=== PATIENT | female | born 1985 ===

== ENCOUNTER 2017-03-13 19:16 | Inpatient (IN) | payer MEDICAID ==
[2017-03-13 20:38] VITALS: BMI 27.8
[2017-03-13] MEDS ORDERED: Penicillin G 5 Million Unit Vial IVPB ONE ×2 (20:38→21:02)
[2017-03-13] MEDS ORDERED: Lactated Ringer's 1,000 ML IV SCH (20:45)
[2017-03-13 21:41] LABS: BASO # 0.1 K/uL (0.0-0.2); BASO % 0.8 % (0.0-2.0); EOS # 0.1 K/uL (0.0-0.7); HEMOGLOBIN 12.4 g/dL (11.0-16.0); LYMPH # 2.2 K/uL (1.0-4.3); LYMPH % 20.7 % (20.0-40.0); MEAN CELL VOLUME 85.5 fL (81.0-99.0); MEAN CORPUSCULAR HEMOGLOBIN 29.6 pg (27.0-31.0); MEAN CORPUSCULAR HGB CONC 34.6 g/dL (33.0-37.0); MEAN PLATELET VOLUME 11.2 fL (7.2-11.7); MONO # 0.9 K/uL (0.0-0.8); MONO % 8.3 % (0.0-10.0); NEUT # 7.5 K/uL (1.8-7.0); NEUT % 69.2 % (50.0-75.0); NRBC % 0.1 % (0.0-2.0); RBC 4.19 Mil/uL (3.80-5.20); RED CELL DISTRIBUTION WIDTH 13.5 % (11.5-14.5); WHITE BLOOD COUNT 10.8 K/uL (4.8-10.8)
[2017-03-13 21:48] LABS: SQUAMOUS EPITHIAL 11 /hpf (0-5); URINE BACTERIA MANY (<OCC)
[2017-03-13 21:49] LABS: PH,URINE 6.5 (5.0-8.0); URINE BILIRUBIN NEGATIVE (NEGATIVE); URINE BLOOD MODERATE (NEGATIVE); URINE CLARITY SL HAZY (Clear); URINE COLOR YELLOW (YELLOW); URINE GLUCOSE (UA) 250 mg/dL (Normal); URINE LEUKOCYTE ESTERASE NEGATIVE Leu/uL (Negative); URINE NITRATE NEGATIVE (NEGATIVE); URINE PROTEIN 30 mg/dL (NEGATIVE); URINE UROBILINOGEN 0.2 mg/dL (0.2-1.0)
[2017-03-13 22:15] LABS: ALBUMIN 3.5 g/dL (3.5-5.0); ALT/SGPT 34 U/L (9-52); AST/SGOT 27 U/L (14-36); BLOOD UREA NITROGEN 16 mg/dL (7-17); CALCIUM 8.7 mg/dl (8.6-10.4); GFR AFRICAN-AMERICAN > 60; GFR NON-AFRICAN AMERICAN > 60
[2017-03-14] MEDS ORDERED: Bupivacaine HCl 0.25% PF (10 ml) Inj ONE (00:23)
[2017-03-14] MEDS ORDERED: Fentanyl/Bupivacaine HCl 250 ML EPI ONE (00:23)
--- NOTE | 2017-03-14 01:22 | OBHP ---
Datetime: 03/14/2017 00:05 Presentation-Admit: Vertex FHR - Baseline A Provider: 150 Membranes, Provider: Intact Contraction Comments Provider: 1-2 Gestation - Est Wks by US: 39w 3d Vital Signs Provider: Reviewed; Within Normal Limits NICHD Variability Prov Fetus A: Moderate 6-25bpm NICHD Accel Fetus A IP Provider: 15X15 FHR Category Provider Fetus A: Category I NICHD Decel Fetus A IP Provider: None Dilatation, Provider: 7 Effacement, Provider: 80 Station, Provider: -3 Datetime: 03/13/2017 20:26 IP Adm Impression: Term, intrauterine IP Admit Plan: Admit to unit Admit Comment, IP Provider: Patient is a 31 year old at 39w3d with WAYNE 03/17/17 by LMP present s to L+D for contractions that started last night. States that the pain started getting worse this af ternoon around 3pm. Feeling contractions q5-15 minutes. Pain scale 7/10. Also reports losing her muco us plug. Endorses +FM, denies VB, LOF Issues: GBS positive OB Hx: 1. 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 06/10/2016 [facility] 14/regular/3-4 days Denies history of fibroids, STIs, abnormal pap smears Hx of ovarian cysts Allergies: NKDA Medical Hx: Denies Medications: PNV Surgical Hx: Denies Social Hx: Denies alcohol, tobacco, drug use; , lives with and daughter Family Hx: Mom- unknown, Father - unknown PE: see above A/P: 31 year old at 39w3d presents with contractions, early labor -Will admit to unit -CEFM and TOCO -Admission labs: CBC, CMP, TS, UA, RPR -Lactated ringers @ 125cc/hr -Diet: NPO -Cytotec 50mcg x 1 for cervical rippening -GBS positive: Penicillin 5MU x 1, Penicillin 2.5MU q4H until delivery -Anethesia on consult -Anticipate Vaginal delivery -Plan discussed with Dr Jas Muñoz DO PGY-1 Attending Note: Patient seen and evaluated by me. I agree with the above. Decision made to withh old cytotec - patient's contractions increased to every 3 min with a pain scale 7/10. Patient request ed to ambulate. Plan: 1) As above, except for cytotec p.o. 2) Patient may ambulate, as tolerated 3) Anticpate vaginal delivery Comments, ACOG Physical Exam: VSS Gen: AAOx3 Abd: Soft, gravid Ext: No clubbing, cyanosis, edema SVE: 50/-3 IP Hx Assessment: The History has been Reviewed and is Current EGA AdmitDate IP: 39.3 IP Chief Complaint: Uterine contractions
[2017-03-14] MEDS ORDERED: Benzocaine/Menthol 20%-0.5% Topical Spray (60 ml) TOP PRN (03:41)
[2017-03-14] MEDS ORDERED: Oxycodone/Acetaminophen 5/325 mg Tab PO PRN (03:41)
[2017-03-15 08:21] LABS: BASO # 0.1 K/uL (0.0-0.2); EOS # 0.2 K/uL (0.0-0.7); EOS % 1.4 % (0.0-4.0); HEMOGLOBIN 11.7 g/dL (11.0-16.0); LYMPH # 2.8 K/uL (1.0-4.3); LYMPH % 23.2 % (20.0-40.0); MEAN CORPUSCULAR HEMOGLOBIN 30.2 pg (27.0-31.0); MEAN CORPUSCULAR HGB CONC 35.1 g/dL (33.0-37.0); MONO # 0.6 K/uL (0.0-0.8); MONO % 5.2 % (0.0-10.0); NEUT # 8.4 K/uL (1.8-7.0); NEUT % 69.2 % (50.0-75.0); RBC 3.87 Mil/uL (3.80-5.20); RED CELL DISTRIBUTION WIDTH 13.3 % (11.5-14.5); WHITE BLOOD COUNT 12.2 K/uL (4.8-10.8)
--- NOTE | 2017-03-15 13:13 | OBPPN ---
Datetime: 03/15/2017 13:11 PP Pain Prov: Within normal limits PP Nausea Prov: Denies PP Flatus Prov: Yes PP Heart Prov: Normal PP Lungs Prov: Normal PP Abdomen/Uterus Prov: Normal PP Lochia Prov: Normal PP CVA Tenderness Prov: Normal PP Extremities Prov: Normal PP C/S Incision Prov: Not Applicable PP Progress Prov: Normal PP Impression Prov: Normal progression PP Plan Prov: Continue present management PP Progress Note Prov: S--patient denies any complaints.toelrating diet.ambulating and voiding witho ut difficulty.breast feeding. O-VSS Afebrile Abdomen gravid and nontender Extremities no calf tenderness A/P Ptaient s/p vaginal delivery ppd 1. -continue to monitor closely Vital Signs Provider PP: Reviewed; Within Normal Limits
[2017-03-16 00:13] VITALS: RESP 20
[2017-03-16 08:06] VITALS: BP 111/64; PULSE 67; TEMP 97.8; O2SAT 100
[2017-03-16] MEDS ORDERED: Influenza Vaccine 60 mcg/0.5 mL SYR (4YR UP) IM ONE (10:00)
--- NOTE | 2017-03-16 14:45 | OBDCSUM ---
Datetime: 03/15/2017 11:43 Discharge Diagnosis, Provider: Term Delivered Discharge Time: 03/16/2017 12:03 Contraception discussed, Prov: Yes Contraception after Delivery: Undecided
== END 2017-03-16 13:00 | disposition home or self-care (01) | DRG 373 ==
LOC: C.EROB 19:16 → UNDOADMIN 20:34 → C.4D 20:34 → C.4M 03-14 05:20
PROVIDERS: ADMIT Obstetrics & Gynecology; ATTEND Obstetrics & Gynecology
PROC: 10E0XZZ Delivery of Products of Conception, External Approach (ICD-10-PCS; principal; 2017-03-14)
DX: O99.824 Streptococcus B carrier state complicating childbirth (principal); Z37.0 Single live birth; Z3A.39 39 weeks gestation of pregnancy

== ENCOUNTER 2017-04-04 18:05 | Inpatient (IN) | payer MEDICAID ==
[2017-04-04 18:05] VITALS: BMI 27.8
--- NOTE | 2017-04-04 20:55 | C.PDOC ---
History Of Present Illness 31yo female, recently given 21 days ago, , presents to ER for evaluation of abdominal pain which was present since but worsening over the past 2 days. Patient states the pain was initially present after eating but now is constant, causing her concern and prompting the visit. She denies any nausea, vomiting or diarrhea. No other complaints. Time Seen by Provider: 04/04/17 20:49 Chief Complaint (Nursing): Abdominal Pain History Per: Patient History/Exam Limitations: no limitations Onset/Duration Of Symptoms: Worse Since (2) Current Symptoms Are (Timing): Worse Location Of Pain/Discomfort: RLQ, LLQ Associated Symptoms: denies: Nausea, Vomiting, Diarrhea Exacerbating Factors: Food Past Medical History Reviewed: Historical Data, Nursing Documentation, Vital Signs Vital Signs: Last Vital Signs Temp 98.0 F 04/05/17 01:09 Pulse 69 04/05/17 01:09 Resp 16 04/05/17 01:09 BP 127/78 04/05/17 01:09 Pulse Ox 100 04/05/17 01:09 - Medical History PMH: No Chronic Diseases Denies: Depression, Diabetes, HTN Surgical History: No Surg Hx - [facility] Procedures DELIVERY OF PRODUCTS OF CONCEPTION, EXTERNAL APPROACH (03/13/17) Family History: States: No Known Family Hx - Social History Hx Alcohol Use: No Hx Substance Use: No - Immunization History Hx Tetanus Toxoid Vaccination: No Hx Influenza Vaccination: No Hx Pneumococcal Vaccination: No Review Of Systems Except As Marked, All Systems Reviewed And Found Negative. Constitutional: Negative for: Fever, Chills Gastrointestinal: Positive for: Abdominal Pain. Negative for: Nausea, Vomiting , Diarrhea Physical Exam - Physical Exam Appears: Non-toxic Skin: Normal Color Head: Atraumatic, Normacephalic Eye(s): bilateral: Normal Inspection Neck: Normal ROM, Supple Lymphatic: Normal Exam Chest: Symmetrical Cardiovascular: Rhythm Regular Respiratory: Normal Breath Sounds Gastrointestinal/Abdominal: Soft, Tenderness (right lower quadrant tenderness), Guarding, Rebound Neurological/Psych: Oriented x3, Normal Speech, Normal Cognition ED Course And Treatment - Laboratory Results Result Diagrams: 04/04/17 21:58 04/04/17 21:58 O2 Sat by Pulse Oximetry: 100 (RA) Pulse Ox Interpretation: Normal - CT Scan/US Abd/pelvis CT Other Rad Studies (CT/US): Read By Radiologist, Radiology Report Reviewed CT/US Interpretation: Addendum created by Swetha Bass MD on 04/05/2017 12:53 AM Eastern Time ([place] & [place]). Findings were discussed with Bhavya SUMMERS. This report contains findings that may be critical. for patient care. Initial Report created on 04/05/2017 12:42 AM Eastern Time ([place] & [place]). EXAM: CT Abdomen and Pelvis With Intravenous Contrast. EXAM DATE/TIME: 04/04/2017 9 :17 PM. CLINICAL HISTORY: 31 years old, female; Pain; Abdominal pain; Flank; Right lower quadrant (rlq); Additional info: Rlq abd. pain, 20 days post . TECHNIQUE: Axial computed tomography images of the abdomen and pelvis with intravenous contrast. All CT. scans at this facility use one or more dose reduction techniques, viz.: automated exposure control;. ma/kV adjustment per patient size (including targeted exams where dose is matched to indication; i.e. head); or iterative reconstruction technique. Coronal and sagittal reformatted images were created and reviewed. CONTRAST: 100 mL of OMNIPAQUE 350 administered intravenously. COMPARISON: No relevant prior studies available. FINDINGS: Tiny left lung calcification. The liver is normal. The spleen is normal. The pancreas is normal. No gallstones. No hydronephrosis or perinephric stranding. The appendix is identified axial images 83 - 92. It is dilated measuring up to 16 mm. There is lack. of intraluminal air and 2 appendicoliths are present in the mid- distal appendix. There is wall. thickening There is stranding in the surrounding fat consistent with inflammation. There is no abscess. There is no free air to suggest perforation. The uterus and ovaries appear normal. IMPRESSION: Positive appendicitis. The degree of dilation is concerning for impending perforation. Surgical consultation is. recommended. Thank you for allowing us to participate in the care of your patient. Dictated and Authenticated by: Swetha Bass MD. 04/05/2017 12:42 AM Eastern Time ([place] & [place]) Progress Note: Labs and CT Abdomen with PO contrast ordered. case was d/w Surgeon who accepted patient to his servive for an admission. Zosyn IV ordered. vice president of marketing was called. Disposition - Disposition Disposition: HOSPITALIZED Disposition Time: 00:59 Condition: FAIR - Clinical Impression Clinical Impression: Acute appendicitis - GEORGIE Ahuja [employer] / Resident Statement MD/DO has reviewed & agrees with the documentation as recorded. - Scribe Statement The provider has reviewed the documentation as recorded by the Scribe (Ashley Jacobs) Provider Attestation: All medical record entries made by the Scribe were at my direction and personally dictated by me. I have reviewed the chart and agree that the record accurately reflects my personal performance of the history, physical exam, medical decision making, and the department course for this patient. I have also personally directed, reviewed, and agree with the discharge instructions and disposition. Decision To Admit - Pt Status Changed To: Hospital Disposition Of: Inpatient - Admit Certification Admit to Inpatient:: After my assessment, the patient will require hospitalization for at least two midnights. This is because of the severity of symptoms shown, intensity of services needed, and/or the medical risk in this patient being treated as an outpatient. - InPatient: Physician Admission Certification:: Patient with acute appendicitis needs surgical treatment - . Bed Request Type: Regular Admitting Physician: Eugenio Menard Patient Diagnosis: Acute appendicitis
[2017-04-04] MEDS ORDERED: Iohexol 240 (50 ml) PO STA (21:12)
[2017-04-04] MEDS ORDERED: Sodium Chloride 0.9% 1,000 ML IV STA (21:12)
[2017-04-04] MEDS ORDERED: Iohexol 240 (50 ml) ONE (21:36)
[2017-04-04 22:01] LABS: BASO # 0.1 K/uL (0.0-0.2); BASO % 0.6 % (0.0-2.0); EOS # 0.2 K/uL (0.0-0.7); EOS % 1.2 % (0.0-4.0); LYMPH # 2.8 K/uL (1.0-4.3); LYMPH % 20.1 % (20.0-40.0); MEAN CELL VOLUME 85.9 fL (81.0-99.0); MEAN CORPUSCULAR HEMOGLOBIN 28.6 pg (27.0-31.0); MEAN CORPUSCULAR HGB CONC 33.3 g/dL (33.0-37.0); MEAN PLATELET VOLUME 9.7 fL (7.2-11.7); MONO # 0.9 K/uL (0.0-0.8); MONO % 6.2 % (0.0-10.0); NEUT # 9.9 K/uL (1.8-7.0); NEUT % 71.9 % (50.0-75.0); RBC 4.81 Mil/uL (3.80-5.20); RED CELL DISTRIBUTION WIDTH 14.2 % (11.5-14.5); WHITE BLOOD COUNT 13.8 K/uL (4.8-10.8)
[2017-04-04 22:02] LABS: HEMOGLOBIN 13.8 g/dL (11.0-16.0)
[2017-04-04 22:15] LABS: SQUAMOUS EPITHIAL 2 /hpf (0-5); URINE AMORPHOUS SEDIMENT FEW /ul (<OCC); URINE BACTERIA FEW (<OCC); URINE BILIRUBIN NEGATIVE (NEGATIVE); URINE BLOOD 3+ (NEGATIVE); URINE CLARITY Hazy (Clear); URINE COLOR Yellow (YELLOW); URINE GLUCOSE (UA) NORMAL (Normal); URINE LEUKOCYTE ESTERASE 1+ Leu/uL (Negative); URINE NITRATE NEGATIVE (NEGATIVE); URINE PROTEIN NEGATIVE (NEGATIVE); URINE UROBILINOGEN NORMAL mg/dL (0.2-1.0)
[2017-04-04 22:16] LABS: ALB/GLOB RATIO 1.1 (1.0-2.1); ALBUMIN 4.2 g/dL (3.5-5.0); ALT/SGPT 42 U/L (9-52); AST/SGOT 48 U/L (14-36); BLOOD UREA NITROGEN 14 mg/dL (7-17); CALCIUM 9.4 mg/dl (8.6-10.4); GFR AFRICAN-AMERICAN > 60; GFR NON-AFRICAN AMERICAN > 60; LIPASE 136 U/L (23-300)
[2017-04-04] MEDS ORDERED: Iohexol 350mg/ml 100 ML ONE (22:19)
--- NOTE | 2017-04-05 00:42 | CT ---
EXAM: CT Abdomen and Pelvis With Intravenous Contrast EXAM DATE/TIME: 04/04/2017 9:17 PM CLINICAL HISTORY: 31 years old, female; Pain; Abdominal pain; Flank; Right lower quadrant (rlq); Additional info: Rlq abd pain, 20 days post TECHNIQUE: Axial computed tomography images of the abdomen and pelvis with intravenous contrast. All CT scans at this facility use one or more dose reduction techniques, viz.: automated exposure control; ma/kV adjustment per patient size (including targeted exams where dose is matched to indication; i.e. head); or iterative reconstruction technique. Coronal and sagittal reformatted images were created and reviewed. CONTRAST: 100 mL of OMNIPAQUE 350 administered intravenously. COMPARISON: No relevant prior studies available. FINDINGS: Tiny left lung calcification. The liver is normal. The spleen is normal. The pancreas is normal. No gallstones. No hydronephrosis or perinephric stranding. The appendix is identified axial images 83 - 92. It is dilated measuring up to 16 mm. There is lack of intraluminal air and 2 appendicoliths are present in the mid- distal appendix. There is wall thickening There is stranding in the surrounding fat consistent with inflammation. There is no abscess. There is no free air to suggest perforation. The uterus and ovaries appear normal. IMPRESSION: Positive appendicitis. The degree of dilation is concerning for impending perforation. Surgical consultation is recommended.
[2017-04-05] MEDS ORDERED: Piperacillin/Tazobact 3.375 gm 100 ML IV STA (00:51)
[2017-04-05] MEDS ORDERED: Piperacill/Tazo 3.375gm in Dex 3.375 GM/50 ML BAG IVPB SCH (01:30)
--- NOTE | 2017-04-05 01:32 | CP.PCM.HP ---
History of Present Illness - History of Present Illness History of Present Illness: General Surgery: Dr Menard Pt is a 31F 20days post- who presents with ~24 hours of new onset abdominal pain. Describes as 10/10 when started, now 4/10 after medication. Pt states pain started around the umbilicus this morning. Has gradually worsened and the pain has relocated down to the RLQ. Pain is worse with ambulation. Pt denies any associated fevers, chills, or vomiting. She admits to some associated nausea and loose bowel movements earlier today. CT demonstrates acute appendicitis PMH: none PSH: none Present on Admission - Present on Admission Any Indicators Present on Admission: No Review of Systems - Review of Systems All systems: reviewed and no additional remarkable complaints except (as per hpi ) Past Patient History - Past Social History Smoking Status: Never Smoked - CARDIAC Hx Hypertension: No - PSYCHIATRIC Hx Depression: No Hx Substance Use: No - SURGICAL HISTORY Hx Surgeries: No Meds Allergies/Adverse Reactions: Allergies Allergy/AdvReac Type Severity Reaction Status Date / Time No Known Allergies Allergy Verified 04/04/17 18:10 Physical Exam - Constitutional Appears: Non-toxic, No Acute Distress - Head Exam Head Exam: NORMOCEPHALIC - Respiratory Exam Respiratory Exam: absent: Accessory Muscle Use, Respiratory Distress - Cardiovascular Exam Cardiovascular Exam: REGULAR RHYTHM. absent: Tachycardia - GI/Abdominal Exam GI & Abdominal Exam: Soft, Tenderness (suprapubic and RLQ). absent: Distended, Firm, Guarding, Hernia, Mass, Rebound, Rigid - Extremities Exam Extremities exam: Negative for: pedal edema - Neurological Exam Neurological exam: Alert, Oriented x3 - Psychiatric Exam Psychiatric exam: Normal Affect, Normal Mood - Skin Skin Exam: Normal Color, Warm Results - Vital Signs Recent Vital Signs: Last Vital Signs Temp 98.0 F 04/05/17 01:09 Pulse 69 04/05/17 01:09 Resp 16 04/05/17 01:09 BP 127/78 04/05/17 01:09 Pulse Ox 100 04/05/17 01:09 - Labs Result Diagrams: 04/04/17 21:58 04/04/17 21:58 Labs: Laboratory Results - last 24 hr 04/04/17 04/04/17 04/04/17 21:58 21:58 21:58 WBC 13.8 H RBC 4.81 Hgb 13.8 D Hct 41.3 MCV 85.9 MCH 28.6 MCHC 33.3 RDW 14.2 Plt Count 256 MPV 9.7 Neut % (Auto) 71.9 Lymph % (Auto) 20.1 [place] % (Auto) 6.2 Eos % (Auto) 1.2 Baso % (Auto) 0.6 Neut # (Auto) 9.9 H Lymph # (Auto) 2.8 [place] # (Auto) 0.9 H Eos # (Auto) 0.2 Baso # (Auto) 0.1 Sodium 136 Potassium 3.8 Chloride 98 Carbon Dioxide 28 Anion Gap 14 BUN 14 Creatinine 0.5 L Est GFR ( Amer) > 60 Est GFR (Non-Af Amer) > 60 Random Glucose 86 Calcium 9.4 Total Bilirubin 1.4 H AST 48 H D ALT 42 Alkaline Phosphatase 95 Total Protein 7.9 Albumin 4.2 Globulin 3.7 Albumin/Globulin Ratio 1.1 Lipase 136 Urine Color Yellow Urine Clarity Hazy Urine pH 7.0 Ur Specific [place] 1.027 Urine Protein Negative Urine Glucose (UA) Normal Urine Ketones 1+ H Urine Blood 3+ H Urine Nitrate Negative Urine Bilirubin Negative Urine Urobilinogen Normal Ur Leukocyte Esterase 1+ H Urine WBC (Auto) 45 H Urine RBC (Auto) 35 H Ur Squamous Epith Cells 2 Amorphous Sediment Few H Urine Bacteria Few H Assessment & Plan - Assessment and Plan (Free Text) Assessment: 31F with acute appendicitis Plan: admit npo IV abx IV fluids pain control/anti-emetics PRN OR later today for lap appendectomy d/w Dr Derian Estevez, PGY3 - Date & Time Date: 04/05/17 Time: 01:33
[2017-04-05] MEDS: Lactated Ringer's 1,000 ML IV SCH ×4 (03:00→21:55)
[2017-04-05] MEDS: Piperacill/Tazo 3.375gm in Dex 3.375 GM/50 ML BAG IVPB SCH ×2 (06:20→12:01)
[2017-04-05 11:46] LABS: BASO # 0.1 K/uL (0.0-0.2); EOS # 0.2 K/uL (0.0-0.7); EOS % 2.4 % (0.0-4.0); HEMOGLOBIN 13.8 g/dL (11.0-16.0); LYMPH % 27.5 % (20.0-40.0); MEAN CELL VOLUME 85.9 fL (81.0-99.0); MEAN CORPUSCULAR HEMOGLOBIN 29.2 pg (27.0-31.0); MEAN PLATELET VOLUME 10.2 fL (7.2-11.7); MONO # 0.5 K/uL (0.0-0.8); MONO % 6.9 % (0.0-10.0); NEUT # 4.4 K/uL (1.8-7.0); NEUT % 62.2 % (50.0-75.0); RBC 4.73 Mil/uL (3.80-5.20); RED CELL DISTRIBUTION WIDTH 14.2 % (11.5-14.5); WHITE BLOOD COUNT 7.1 K/uL (4.8-10.8)
[2017-04-05 11:55] LABS: PROTHROMBIN TIME 11.4 SECONDS (9.7-12.2)
[2017-04-05 13:09] LABS: ALB/GLOB RATIO 1.1 (1.0-2.1); ALBUMIN 3.3 g/dL (3.5-5.0); ALT/SGPT 44 U/L (9-52); AST/SGOT 37 U/L (14-36); BLOOD UREA NITROGEN 8 mg/dL (7-17); CALCIUM 8.7 mg/dl (8.6-10.4); GFR AFRICAN-AMERICAN > 60; GFR NON-AFRICAN AMERICAN > 60
[2017-04-05] MEDS ORDERED: Propofol 10 mg/ml Inj (20 ML) ONE (13:31)
[2017-04-05] MEDS ORDERED: Midazolam 2 MG/2 ML VIAL ONE (13:31)
[2017-04-05] MEDS ORDERED: Rocuronium 10 mg/ml (10 ml) ONE (13:36)
[2017-04-05] MEDS ORDERED: Morphine 4 MG/ML VIAL IVP PRN (15:30)
[2017-04-05] MEDS ORDERED: Bupivacaine HCl 0.5% PF (10 ml) Inj ONE (15:33)
[2017-04-05] MEDS ORDERED: Neostigmine Methylsulfate 3mg/3ml Syringe IV ONE (16:08)
[2017-04-05] MEDS ORDERED: HYDROmorphone 0.5 mg/0.5 ml ISec IVP PRN (16:40)
--- NOTE | 2017-04-05 16:41 | PCM.SURG1 ---
Surgeon's Initial Post Op Note - Surgeon's Notes Surgeon: Dr. Menard Physician Office Rep: PGY1 Type of Anesthesia: General Endo Pre-Operative Diagnosis: Acute appendicits Operative Findings: severe inflmmation, w/ purulent drainage Post-Operative Diagnosis: as above Operation Performed: laparoscopic appenectomy Specimen/Specimens Removed: appendix Estimated Blood Loss: EBL {In ML}: 10 Drains Used: No Drains Date of Surgery/Procedure: 04/05/17 Time of Surgery/Procedure: 16:41
[2017-04-05] MEDS: Benzocaine/Menthol (Cepacol) Lozenge MT PRN (21:53)
--- NOTE | 2017-04-05 23:40 | OP ---
DATE OF SURGERY: 04/05/2017. PREOPERATIVE DIAGNOSIS: Acute appendicitis. POSTOPERATIVE DIAGNOSIS: Acute appendicitis. PROCEDURE PERFORMED: Laparoscopic appendectomy. FINDINGS: There is considerable amount of bloody fluid within the peritoneal cavity probably compatible with the recent delivery. On the right lower quadrant, there are some adhesions noted and the appendix was found to be nonperforated but is markedly swollen. The peculiar thing about this particular appendix was that it was very broad at the base area and there was considerable thickening and hardening. There is no gross perforation noted. DESCRIPTION OF PROCEDURE: Under general anesthesia, the patient was prepared and draped in the usual sterile fashion. CO2 was insufflated through a Veress needle inserted in the umbilicus. A 12-mm trocar was inserted through which a laparoscope was inserted. Under direct vision, a 5-mm suprapubic port and a 5-mm left lower quadrant ports were inserted. The patient was placed in a Trendelenburg position, turned over towards the left side. The appendix was identified, this certainly looks like the appendix. Some thin adhesions were noted around the area but there was no other areas suspicious of any other pathology. The structure described was then mobilized with the mesoappendix being secured with the LigaSure all the way down to the base. This was and then the area which looked like the base was then transected with the aid of the AutoSuture model Endo OYHANA. It took at least three loads of the YOHANA with blue ana to accomplish the purpose. No bleeding was noted. The area was irrigated with copious amounts of saline solution, irrigating fluid suctioned out. The appendix with meso were then placed in an EndoCatch and was extracted through the umbilical port. CO2 allowed to escape from the peritoneal cavity, trocars was removed. The wound closed in a routine fashion. Estimated blood loss about 10 mL. No apparent complications. Eugenio Menard MD
[2017-04-06] MEDS: Piperacillin/Tazobact 3.375 GM in Sodium Chloride 0.9% 100 ML IVPB SCH ×4 (00:14→20:33)
[2017-04-06] MEDS: Lactated Ringer's 1,000 ML IV SCH (04:30)
[2017-04-06 08:18] LABS: BASO # 0.1 K/uL (0.0-0.2); BASO % 0.4 % (0.0-2.0); EOS % 0.1 % (0.0-4.0); HEMOGLOBIN 12.6 g/dL (11.0-16.0); LYMPH # 1.7 K/uL (1.0-4.3); LYMPH % 13.2 % (20.0-40.0); MEAN CELL VOLUME 85.2 fL (81.0-99.0); MEAN CORPUSCULAR HEMOGLOBIN 29.4 pg (27.0-31.0); MEAN CORPUSCULAR HGB CONC 34.5 g/dL (33.0-37.0); MEAN PLATELET VOLUME 9.9 fL (7.2-11.7); MONO # 0.8 K/uL (0.0-0.8); MONO % 6.5 % (0.0-10.0); NEUT # 10.2 K/uL (1.8-7.0); NEUT % 79.8 % (50.0-75.0); RBC 4.31 Mil/uL (3.80-5.20); RED CELL DISTRIBUTION WIDTH 13.9 % (11.5-14.5)
[2017-04-06 08:19] LABS: WHITE BLOOD COUNT 12.7 K/uL (4.8-10.8)
[2017-04-06 08:35] LABS: BLOOD UREA NITROGEN 8 mg/dL (7-17); GFR AFRICAN-AMERICAN > 60; GFR NON-AFRICAN AMERICAN > 60
--- NOTE | 2017-04-06 12:48 | CP.PCM.PN ---
Subjective - Date & Time of Evaluation Date of Evaluation: 04/06/17 Time of Evaluation: 06:45 - Subjective Subjective: General surgery progress note for Dr. Nelson Rodriguez, PGY-1 Pt S & E at bedside. Pt reports ab pain well controlled. Denies N & V, F & C, flatus, BM. Encouraged pt to walk around. Objective - Vital Signs/Intake and Output Vital Signs (last 24 hours): Temp Pulse Resp BP Pulse Ox 98.5 F 65 20 102/63 100 04/06/17 09:05 04/06/17 09:05 04/06/17 09:05 04/06/17 09:05 04/06/17 09:05 Intake and Output: 04/06/17 04/06/17 06:59 18:59 Intake Total 1939 Balance 1939 - Medications Medications: Current Medications Acetaminophen (Tylenol 325mg Tab) 650 mg PO Q6 PRN PRN Reason: Fever >100.4 F Benzocaine/Menthol (Cepacol Sore Throat) 1 eleuterio MT Q2H PRN PRN Reason: Sore Throat Last Admin: 04/05/17 21:53 Dose: 1 eleuterio Docusate Sodium (Colace) 100 mg PO DAILY [facility] Last Admin: 04/06/17 10:05 Dose: 100 mg Lactated Ringer's (Lactated Ringer's) 1,000 mls @ 100 mls/hr IV .Q10H [facility] Last Admin: 04/06/17 04:30 Dose: 100 mls/hr Piperacillin Sod/Tazobactam (Sod 3.375 gm/ Sodium Chloride) 100 mls @ 100 mls/ hr IVPB Q6H [facility] Last Admin: 04/06/17 12:08 Dose: 100 mls/hr Ketorolac Tromethamine (Toradol) 30 mg IVP Q6 [facility] Last Admin: 04/06/17 11:12 Dose: 30 mg Ondansetron HCl (Zofran Inj) 4 mg IVP Q4H PRN PRN Reason: Nausea/Vomiting Oxycodone/Acetaminophen (Percocet 5/325 Mg Tab) 1 tab PO Q4H PRN PRN Reason: Pain, moderate (4-7) Stop: 04/08/17 16:38 Pantoprazole Sodium (Protonix Inj) 40 mg IVP DAILY [facility] Last Admin: 04/06/17 10:03 Dose: 40 mg - Labs Labs: 04/06/17 08:06 04/06/17 08:06 PT 11.4 SECONDS (9.7-12.2) 04/05/17 11:38 INR 1.0 04/05/17 11:38 - Constitutional Appears: Non-toxic, No Acute Distress - Head Exam Head Exam: ATRAUMATIC, NORMAL INSPECTION, NORMOCEPHALIC - Eye Exam Eye Exam: EOMI, Normal appearance - ENT Exam ENT Exam: Mucous Membranes Moist, Normal Exam - Neck Exam Neck Exam: Full ROM, Normal Inspection - Respiratory Exam Respiratory Exam: NORMAL BREATHING PATTERN - Cardiovascular Exam Cardiovascular Exam: REGULAR RHYTHM, +S1, +S2 - GI/Abdominal Exam GI & Abdominal Exam: Soft, Tenderness (over surgical sites). absent: Distended , Firm, Guarding, Rigid Additional comments: dressings over surgical site- clean/dry/intact, except umbilical dressing- which has scant sanguinous strike through. Assessment and Plan - Assessment and Plan (Free Text) Assessment: 32F POD#1 s/p laparoscopic appendectomy Plan: Cont pain control Bowel regimen Cont IV Abx Advanced to reg diet Anti-emetic PRN D/c'd IVF Cont GI/DVT ppx OOBTC Ambulate Encourage IS use DW attending Jennifer, PGY-1
[2017-04-07] MEDS: Piperacillin/Tazobact 3.375 GM in Sodium Chloride 0.9% 100 ML IVPB SCH ×4 (01:30→19:00)
[2017-04-07] MEDS: Benzocaine/Menthol (Cepacol) Lozenge MT PRN (06:06)
[2017-04-07] MEDS: Oxycodone/Acetaminophen 5/325 mg Tab PO PRN ×2 (09:35→21:09)
[2017-04-07] MEDS ORDERED: Influenza Vaccine 60 mcg/0.5 mL SYR (4YR UP) IM ONE (10:00)
[2017-04-07 11:30] LABS: BASO % 0.5 % (0.0-2.0); EOS # 0.2 K/uL (0.0-0.7); EOS % 2.3 % (0.0-4.0); HEMOGLOBIN 12.7 g/dL (11.0-16.0); LYMPH # 1.9 K/uL (1.0-4.3); LYMPH % 22.8 % (20.0-40.0); MEAN CELL VOLUME 86.3 fL (81.0-99.0); MEAN CORPUSCULAR HEMOGLOBIN 29.3 pg (27.0-31.0); MEAN CORPUSCULAR HGB CONC 33.9 g/dL (33.0-37.0); MEAN PLATELET VOLUME 9.9 fL (7.2-11.7); MONO # 0.6 K/uL (0.0-0.8); MONO % 7.4 % (0.0-10.0); NEUT # 5.5 K/uL (1.8-7.0); RBC 4.33 Mil/uL (3.80-5.20); RED CELL DISTRIBUTION WIDTH 14.3 % (11.5-14.5); WHITE BLOOD COUNT 8.1 K/uL (4.8-10.8)
[2017-04-07 11:45] LABS: BLOOD UREA NITROGEN 11 mg/dL (7-17); CALCIUM 8.1 mg/dl (8.6-10.4); GFR AFRICAN-AMERICAN > 60; GFR NON-AFRICAN AMERICAN > 60
--- NOTE | 2017-04-07 19:05 | CP.PCM.PN ---
Subjective - Date & Time of Evaluation Date of Evaluation: 04/07/17 Time of Evaluation: 06:30 - Subjective Subjective: General Surgery- Dr. Menard Pt reports ab pain well controlled. + flatus and BM. Denies N & V, F & C, flatus, BM. Denies F/C CP/SOB Objective - Vital Signs/Intake and Output Vital Signs (last 24 hours): Temp Pulse Resp BP Pulse Ox 98.4 F 69 18 115/74 99 04/07/17 15:33 04/07/17 15:33 04/07/17 15:33 04/07/17 15:33 04/07/17 15:33 Intake and Output: 04/07/17 04/08/17 18:59 06:59 Intake Total 460 Balance 460 - Medications Medications: Current Medications Acetaminophen (Tylenol 325mg Tab) 650 mg PO Q6 PRN PRN Reason: Fever >100.4 F Benzocaine/Menthol (Cepacol Sore Throat) 1 eleuterio MT Q2H PRN PRN Reason: Sore Throat Last Admin: 04/07/17 06:06 Dose: 1 eleuterio Docusate Sodium (Colace) 100 mg PO DAILY [facility] Last Admin: 04/07/17 09:45 Dose: Not Given Piperacillin Sod/Tazobactam (Sod 3.375 gm/ Sodium Chloride) 100 mls @ 100 mls/ hr IVPB Q6H [facility] Last Admin: 04/07/17 12:58 Dose: 100 mls/hr Ondansetron HCl (Zofran Inj) 4 mg IVP Q4H PRN PRN Reason: Nausea/Vomiting Last Admin: 04/07/17 08:53 Dose: 4 mg Oxycodone/Acetaminophen (Percocet 5/325 Mg Tab) 1 tab PO Q4H PRN PRN Reason: Pain, moderate (4-7) Stop: 04/08/17 16:38 Last Admin: 04/07/17 09:35 Dose: 1 tab Pantoprazole Sodium (Protonix Inj) 40 mg IVP DAILY [facility] Last Admin: 04/07/17 09:35 Dose: 40 mg - Labs Labs: 04/07/17 11:17 04/07/17 11:17 PT 11.4 SECONDS (9.7-12.2) 04/05/17 11:38 INR 1.0 04/05/17 11:38 - Constitutional Appears: Non-toxic, No Acute Distress - Head Exam Head Exam: ATRAUMATIC - Eye Exam Eye Exam: EOMI. absent: Scleral icterus - ENT Exam ENT Exam: Mucous Membranes Moist - Respiratory Exam Respiratory Exam: NORMAL BREATHING PATTERN. absent: Accessory Muscle Use, Respiratory Distress - Cardiovascular Exam Cardiovascular Exam: +S1, +S2. absent: Bradycardia, Tachycardia - GI/Abdominal Exam GI & Abdominal Exam: Soft, Tenderness. absent: Distended, Firm, Guarding, Rigid Additional comments: appropriately tender to palpation aroudn incisions Incsions C/D/I - Extremities Exam Extremities Exam: absent: Calf Tenderness - Neurological Exam Neurological Exam: Alert, Awake, Oriented x3 - Psychiatric Exam Psychiatric exam: Normal Affect - Skin Skin Exam: Intact, Warm Assessment and Plan - Assessment and Plan (Free Text) Assessment: 32F s/p laparoscopic appendectomy POD#2 Plan: Cont IV Abx regular diet as tolerated Pain control & Anti-emetic PRN DVT ppx d/w Dr. Menard Surgical attending PGY1
[2017-04-08] MEDS: Piperacillin/Tazobact 3.375 GM in Sodium Chloride 0.9% 100 ML IVPB SCH ×4 (01:34→18:08)
--- NOTE | 2017-04-08 08:23 | CP.PCM.PN ---
Subjective - Date & Time of Evaluation Date of Evaluation: 04/08/17 Time of Evaluation: 06:35 - Subjective Subjective: General Surgery- Dr. Menard Patient seen and examined at bedside this AM. Had an episode of vomiting last night after taking PO percocet. Emesis was food she had just eaten prior. Currently feels well. Pain controlled w/ toradol and Acteaminophen. Incisions clean dry and intact. Denies current, fevers, chills, chest pain, shortness of breath. Objective - Vital Signs/Intake and Output Vital Signs (last 24 hours): Temp Pulse Resp BP Pulse Ox 97.9 F 65 20 129/86 97 04/08/17 08:18 04/08/17 08:18 04/08/17 08:18 04/08/17 08:18 04/08/17 08:18 Intake and Output: 04/08/17 04/08/17 06:59 18:59 Intake Total 440 Balance 440 - Medications Medications: Current Medications Acetaminophen (Tylenol 325mg Tab) 650 mg PO Q6 PRN PRN Reason: Fever >100.4 F Benzocaine/Menthol (Cepacol Sore Throat) 1 eleuterio MT Q2H PRN PRN Reason: Sore Throat Last Admin: 04/07/17 06:06 Dose: 1 eleuterio Docusate Sodium (Colace) 100 mg PO DAILY [facility] Last Admin: 04/07/17 09:45 Dose: Not Given Famotidine (Pepcid) 20 mg PO BID [facility] Piperacillin Sod/Tazobactam (Sod 3.375 gm/ Sodium Chloride) 100 mls @ 100 mls/ hr IVPB Q6H [facility] Last Admin: 04/08/17 07:08 Dose: 100 mls/hr Ketorolac Tromethamine (Toradol) 30 mg IVP Q6 PRN PRN Reason: Pain, moderate (4-7) Last Admin: 04/08/17 00:17 Dose: 30 mg Ondansetron HCl (Zofran Inj) 4 mg IVP Q4H PRN PRN Reason: Nausea/Vomiting Last Admin: 04/08/17 07:13 Dose: 4 mg Oxycodone/Acetaminophen (Percocet 5/325 Mg Tab) 1 tab PO Q4H PRN PRN Reason: Pain, moderate (4-7) Stop: 04/08/17 16:38 Last Admin: 04/07/17 21:09 Dose: 1 tab Pantoprazole Sodium (Protonix Inj) 40 mg IVP DAILY [facility] Last Admin: 04/07/17 09:35 Dose: 40 mg - Labs Labs: 04/07/17 11:17 04/07/17 11:17 PT 11.4 SECONDS (9.7-12.2) 04/05/17 11:38 INR 1.0 04/05/17 11:38 - Constitutional Appears: Non-toxic, No Acute Distress - Eye Exam Eye Exam: EOMI. absent: Scleral icterus - ENT Exam ENT Exam: Mucous Membranes Moist - Respiratory Exam Respiratory Exam: NORMAL BREATHING PATTERN. absent: Accessory Muscle Use, Respiratory Distress - Cardiovascular Exam Cardiovascular Exam: +S1, +S2. absent: Bradycardia, Tachycardia - GI/Abdominal Exam GI & Abdominal Exam: Soft. absent: Firm, Guarding, Rigid, Tenderness - Neurological Exam Neurological Exam: Alert, Awake, Oriented x3 - Skin Skin Exam: Intact, Warm Assessment and Plan - Assessment and Plan (Free Text) Assessment: 32F s/p laparoscopic appendectomy POD#3 Plan: Cont IV Abx f/u AM labs regular diet as tolerated Pain control & Anti-emetic PRN GI/DVT ppx monitor bowel function d/w Dr. Menard Surgical attending PGY1
[2017-04-08 08:31] LABS: BASO % 0.6 % (0.0-2.0); EOS # 0.1 K/uL (0.0-0.7); EOS % 1.4 % (0.0-4.0); HEMOGLOBIN 13.4 g/dL (11.0-16.0); LYMPH # 2.5 K/uL (1.0-4.3); LYMPH % 31.8 % (20.0-40.0); MEAN CELL VOLUME 86.2 fL (81.0-99.0); MEAN CORPUSCULAR HEMOGLOBIN 29.5 pg (27.0-31.0); MEAN CORPUSCULAR HGB CONC 34.2 g/dL (33.0-37.0); MEAN PLATELET VOLUME 9.8 fL (7.2-11.7); MONO # 0.7 K/uL (0.0-0.8); MONO % 8.8 % (0.0-10.0); NEUT # 4.5 K/uL (1.8-7.0); NEUT % 57.4 % (50.0-75.0); RBC 4.54 Mil/uL (3.80-5.20); RED CELL DISTRIBUTION WIDTH 14.4 % (11.5-14.5); WHITE BLOOD COUNT 7.8 K/uL (4.8-10.8)
[2017-04-08 08:51] LABS: BLOOD UREA NITROGEN 7 mg/dL (7-17); CALCIUM 8.2 mg/dl (8.6-10.4); GFR AFRICAN-AMERICAN > 60; GFR NON-AFRICAN AMERICAN > 60
[2017-04-08] MEDS ORDERED: Pneumococcal 23-Valent Vaccine IM ONE (10:00)
[2017-04-08 16:08] VITALS: O2SAT 98
[2017-04-09] MEDS: Piperacillin/Tazobact 3.375 GM in Sodium Chloride 0.9% 100 ML IVPB SCH ×3 (00:16→12:09)
[2017-04-09 01:22] VITALS: RESP 20
[2017-04-09 07:41] LABS: BLOOD UREA NITROGEN 7 mg/dL (7-17); CALCIUM 8.1 mg/dl (8.6-10.4); GFR AFRICAN-AMERICAN > 60; GFR NON-AFRICAN AMERICAN > 60
[2017-04-09 08:04] LABS: BASO # 0.1 K/uL (0.0-0.2); BASO % 0.8 % (0.0-2.0); EOS # 0.2 K/uL (0.0-0.7); EOS % 2.4 % (0.0-4.0); HEMOGLOBIN 12.8 g/dL (11.0-16.0); LYMPH # 1.5 K/uL (1.0-4.3); LYMPH % 18.7 % (20.0-40.0); MEAN CELL VOLUME 85.8 fL (81.0-99.0); MEAN CORPUSCULAR HEMOGLOBIN 29.4 pg (27.0-31.0); MEAN CORPUSCULAR HGB CONC 34.2 g/dL (33.0-37.0); MEAN PLATELET VOLUME 9.6 fL (7.2-11.7); MONO # 0.3 K/uL (0.0-0.8); MONO % 3.9 % (0.0-10.0); NEUT % 74.2 % (50.0-75.0); NRBC % 0.1 % (0.0-2.0); RBC 4.37 Mil/uL (3.80-5.20); RED CELL DISTRIBUTION WIDTH 14.1 % (11.5-14.5)
[2017-04-09 09:04] VITALS: BP 110/70; PULSE 66; TEMP 98.5
--- NOTE | 2017-04-09 19:50 | CP.PCM.DIS ---
Provider - Provider Date of Admission: 04/05/17 00:58 Attending physician: Eugenio Menard MD Time Spent in preparation of Discharge (in minutes): 45 Hospital Course - Lab Results Lab Results: Micro Results 04/05/17 12:56 Urine Urine Culture - Final No Growth (<1,000 CFU/ML) Most Recent Lab Values WBC 8.0 K/uL (4.8-10.8) 04/09/17 07:19 RBC 4.37 Mil/uL (3.80-5.20) 04/09/17 07:19 Hgb 12.8 g/dL (11.0-16.0) 04/09/17 07:19 Hct 37.5 % (34.0-47.0) 04/09/17 07:19 MCV 85.8 fL (81.0-99.0) 04/09/17 07:19 MCH 29.4 pg (27.0-31.0) 04/09/17 07:19 MCHC 34.2 g/dL (33.0-37.0) 04/09/17 07:19 RDW 14.1 % (11.5-14.5) 04/09/17 07:19 Plt Count 235 K/uL (130-400) 04/09/17 07:19 MPV 9.6 fL (7.2-11.7) 04/09/17 07:19 Neut % (Auto) 74.2 % (50.0-75.0) 04/09/17 07:19 Lymph % (Auto) 18.7 % (20.0-40.0) L 04/09/17 07:19 Chambers % (Auto) 3.9 % (0.0-10.0) 04/09/17 07:19 Eos % (Auto) 2.4 % (0.0-4.0) 04/09/17 07:19 Baso % (Auto) 0.8 % (0.0-2.0) 04/09/17 07:19 Neut # (Auto) 6.0 K/uL (1.8-7.0) 04/09/17 07:19 Lymph # (Auto) 1.5 K/uL (1.0-4.3) 04/09/17 07:19 Chambers # (Auto) 0.3 K/uL (0.0-0.8) 04/09/17 07:19 Eos # (Auto) 0.2 K/uL (0.0-0.7) 04/09/17 07:19 Baso # (Auto) 0.1 K/uL (0.0-0.2) 04/09/17 07:19 PT 11.4 SECONDS (9.7-12.2) 04/05/17 11:38 INR 1.0 04/05/17 11:38 Sodium 139 mmol/L (132-148) 04/09/17 07:19 Potassium 3.9 mmol/L (3.6-5.2) 04/09/17 07:19 Chloride 105 mmol/L (98-107) 04/09/17 07:19 Carbon Dioxide 26 mmol/L (22-30) 04/09/17 07:19 Anion Gap 12 (10-20) 04/09/17 07:19 BUN 7 mg/dL (7-17) 04/09/17 07:19 Creatinine 0.6 mg/dL (0.7-1.2) L 04/09/17 07:19 Est GFR ( Amer) > 60 04/09/17 07:19 Est GFR (Non-Af Amer) > 60 04/09/17 07:19 Random Glucose 95 mg/dL (65-105) 04/09/17 07:19 Calcium 8.1 mg/dl (8.6-10.4) L 04/09/17 07:19 Total Bilirubin 1.9 mg/dL (0.2-1.3) H 04/05/17 11:38 AST 37 U/L (14-36) H D 04/05/17 11:38 ALT 44 U/L (9-52) 04/05/17 11:38 Alkaline Phosphatase 87 U/L (38-126) 04/05/17 11:38 Total Protein 6.2 g/dL (6.3-8.3) L 04/05/17 11:38 Albumin 3.3 g/dL (3.5-5.0) L D 04/05/17 11:38 Globulin 2.9 gm/dL (2.2-3.9) 04/05/17 11:38 Albumin/Globulin Ratio 1.1 (1.0-2.1) 04/05/17 11:38 Lipase 136 U/L (23-300) 04/04/17 21:58 Urine Color Yellow (YELLOW) 04/04/17 21:58 Urine Clarity Hazy (Clear) 04/04/17 21:58 Urine pH 7.0 (5.0-8.0) 04/04/17 21:58 Ur Specific [place] 1.027 (1.003-1.030) 04/04/17 21:58 Urine Protein Negative mg/dL (NEGATIVE) 04/04/17 21:58 Urine Glucose (UA) Normal mg/dL (Normal) 04/04/17 21:58 Urine Ketones 1+ mg/dL (NEGATIVE) H 04/04/17 21:58 Urine Blood 3+ (NEGATIVE) H 04/04/17 21:58 Urine Nitrate Negative (NEGATIVE) 04/04/17 21:58 Urine Bilirubin Negative (NEGATIVE) 04/04/17 21:58 Urine Urobilinogen Normal mg/dL (0.2-1.0) 04/04/17 21:58 Ur Leukocyte Esterase 1+ Sushant/uL (Negative) H 18 21:58 Urine WBC (Auto) 45 /hpf (0-5) H 18 21:58 Urine RBC (Auto) 35 /hpf (0-3) H 04/04/17 21:58 Ur Squamous Epith Cells 2 /hpf (0-5) 04/04/17 21:58 Amorphous Sediment Few /ul (<OCC) H 04/04/17 21:58 Urine Bacteria Few (<OCC) H 04/04/17 21:58 Urine HCG, Qual Negative (NEGATIVE) 04/05/17 08:03 - Hospital Course Hospital Course: 32F 20days post- who presents with ~24 hours of new onset abdominal pain. Describes as 10/10 when started, now 4/10 after medication. Pt states pain started around the umbilicus this morning. Has gradually worsened and the pain has relocated down to the RLQ. Diagnosis of appendicitis was confirmed on CT scan. patient was then taken to the OR for for a laparoscopic appendectomy. Appendix was ruptured dialated w/ purulent discharge. Appendix was removed, abdomen was washed and closed in sterile fashion. Patient was kept in hosptial for IV abx and trending WBC. Patient tolerated diet and was discharged home in stable condition w/ PO abx and pain medicine. Pt to follow up in office in 1-2 weeks. Discharge Exam - Head Exam Head Exam: ATRAUMATIC - Eye Exam Eye Exam: EOMI. absent: Scleral icterus - Respiratory Exam Respiratory Exam: NORMAL BREATHING PATTERN. absent: Accessory Muscle Use, Chest Wall Tenderness - Cardiovascular Exam Cardiovascular Exam: +S1, +S2. absent: Bradycardia, Tachycardia - GI/Abdominal Exam GI & Abdominal Exam: Soft. absent: Distended, Firm, Rebound, Rigid, Tenderness - Neurological Exam Neurological exam: Alert, Oriented x3 - Skin Skin Exam: Intact, Warm Discharge Plan - Discharge Medications Prescriptions: Amoxicillin/Clavulanate [Augmentin 875 MG-125 MG] 1 tab PO BID 10 Days tab - Follow Up Plan Condition: FAIR Disposition: HOME/ ROUTINE Instructions: Appendicitis, Adult (DC), Amoxicillin and Clavulanate, Appendectomy, Laparoscopic Surgery (DC), Managing Pain After Surgery Additional Instructions: Ok to shower. Do not sit in a bath or hot tub. Follow up with Dr. Menard in 1-2 weeks. If you have a fever greater than 100.4, please take Tylenol. If it persists, please go to the OR Please take antibiotics as prescribed. Please eat yogurt while on the prescription to prevent yeast infection Do not lift anything over 10lbs for 4-[address] Menard says you can. You have either glue or special tape over your incisions, do not remove this. It will fall off on it's own. Referrals: Eugenio Menard MD [Staff Provider] -
== END 2017-04-09 18:16 | disposition home or self-care (01) | DRG 343 ==
LOC: C.ER 18:05 → C.3T 04-05 00:58 → C.6T 04-05 01:59
PROVIDERS: ADMIT Surgery; ATTEND Surgery
PROC: 0DTJ4ZZ Resection of Appendix, Percutaneous Endoscopic Approach (ICD-10-PCS; principal; 2017-04-05 15:20)
DX: K35.80 Unspecified acute appendicitis (principal)